=== PATIENT | male | born 1955 | race Caucasian/White ===

== ENCOUNTER → 2017-01-01 | Outpatient (CLI) | payer OTHER ==
[2017-01-01 08:56] LABS: HEMOGLOBIN 15.4 g/dL (14.1-18.0); LYMPH # 1.3 K/mm3 (0.7-4.5); LYMPH % 26.1 % (10-50)
[2017-01-01 11:21] LABS: BUN 27 mg/dL (7-18); PROSTATE-SPECIFIC AG SCREEEN 1.3 ng/mL (0.0-4.0)
[2017-01-01 11:50] LABS: GFR (ESTIMATED) 56 ML/MIN (>60)
== END ==
LOC: LAB 08:18
PROVIDERS: Family Medicine
DX: R03.0 Elevated blood-pressure reading, without diagnosis of hypertension (principal); Z12.5 Encounter for screening for malignant neoplasm of prostate
CPT/HCPCS: G0103